=== PATIENT | female | born 2000 | race Caucasian/White ===

== ENCOUNTER 2023-07-09 15:04 | Emergency (ER) | payer OTHER ==
[~2023-07-09] VITALS: Ht 167.6 cm; Wt 76.2 kg
[2023-07-09 15:25] VITALS: BP_SYST 134; PULSE 97; RESP 17; TEMP 97.6
[2023-07-09] MEDS ORDERED: NACL 0.9% 1,000 ML IV ONE (15:30)
[2023-07-09 16:54] LABS: BASOPHILS % (AUTO) 0.5 % (0.0-2.0); EOSINOPHILS % (AUTO) 0.4 % (0.0-4.0); HEMOGLOBIN 13.9 g/dL (12.0-16.0); LYMPHOCYTES # (AUTO) 1.1 K/uL (1.0-5.5); LYMPHOCYTES % (AUTO) 15.2 % (20.5-51.5); MEAN CORPUSCULAR HEMOGLOBIN 30 pg (27-31); MEAN CORPUSCULAR HGB CONC 34 % (32-36); MEAN CORPUSCULAR VOLUME 89 fL (79.0-98.0); MONOCYTES # (AUTO) 0.5 K/uL (0.0-1.0); MONOCYTES % (AUTO) 6.6 % (1.7-9.3); NEUTROPHILS # (AUTO) 5.4 K/uL (1.8-7.7); NEUTROPHILS % (AUTO) 77.3 % (40.0-70.0); PLATELET COUNT (AUTO) 169 K/uL (130-430); RED BLOOD CELL COUNT(AUTO) 4.62 MIL/uL (4.2-6.2)
[2023-07-09 16:57] LABS: INFLUENZA TYPE A positive (NEGATIVE); INFLUENZA TYPE B NEGATIVE (NEGATIVE)
[2023-07-09 17:09] LABS: CALCIUM 8.1 mg/dL (8.4-11.0); CREATININE 0.74 mg/dL (0.55-1.30); POTASSIUM 3.8 mmol/L (3.5-5.1)
[2023-07-09 17:15] LABS: BILIRUBIN,URINE 1+ (NEGATIVE); BLOOD, URINE TRACE (NEGATIVE); CLARITY/URINE SLIGHTLY CLOUDY (CLEAR); COLOR,URINE YELLOW (YELLOW); GLUCOSE,URINE NEGATIVE (NEGATIVE); KETONES,URINE TRACE (NEGATIVE); LEUKOCYTE ESTERASE ,URINE NEGATIVE (NEGATIVE); PROTEIN URINE TRACE (NEGATIVE)
[2023-07-09] MEDS ORDERED: KETOROLAC TROMETHAMINE 30 MG VIAL IVP ONE (17:15)
[2023-07-09 17:16] LABS: NITRITE, URINE NEGATIVE (NEGATIVE)
[2023-07-09 17:22] LABS: ALBUMIN 3.6 g/dL (3.4-4.8); THYROID STIMULATING HORMONE 0.82 uIu/mL (0.34-4.82); TOTAL BILIRUBIN 1.5 mg/dL (0.0-1.0); TOTAL PROTEIN, SERUM 6.9 g/dL (6.4-8.3)
[2023-07-09] MEDS ORDERED: ACETAMINOPHEN 325 MG TABLET PO ONE (17:45)
[2023-07-09 17:47] LABS: BACTERIA,URINE MODERATE /HPF (None Seen); COARSE GRANULAR CASTS,URINE 0-10 /LPF (None Seen); FINE GRANULAR CASTS,URINE 0-10 /LPF (None Seen); MUCUS,URINE 2+ /LPF (None Seen); RBC,URINE 0-3 /HPF (0-3); WBC,URINE 0-3 /HPF (0-3)
[2023-07-09] MEDS ORDERED: OSEL75CA PO (17:57)
[2023-07-09] MEDS ORDERED: ACET325T PO (17:57)
[2023-07-09 18:12] VITALS: BP_SYST 134; PULSE 97; RESP 17; TEMP 97.6; O2SAT 99
== END 2023-07-09 18:12 | disposition home or self-care (01) ==
LOC: SED 15:04
DX: J10.1 Influenza due to other identified influenza virus with other respiratory manifestations (principal); R53.1 Weakness; R55 Syncope and collapse; R50.9 Fever, unspecified; R11.0 Nausea; M79.10 Myalgia, unspecified site; Z85.43 Personal history of malignant neoplasm of ovary; Z79.899 Other long term (current) drug therapy; Z20.822 Contact with and (suspected) exposure to COVID-19
CPT/HCPCS: 99284; 96360; 87426; 80053; 81000; 82962; 84439; 84443; 85025; 87086; 36415; 93005; 81025; 87804 ×2; J1885; J7030

== ENCOUNTER 2023-11-12 19:55 | Emergency (ER) | payer BC, OTHER ==
[~2023-11-12] VITALS: Ht 167.6 cm; Wt 63.5 kg
[~2023-11-12 19:55] MED LIST: ACET325T PO; OSEL75CA PO
[2023-11-12 20:04] VITALS: BP_SYST 128; PULSE 69; RESP 16; TEMP 97.7; O2SAT 99
[2023-11-12 22:06] LABS: COVID19 ANTIGEN SOFIA FIA NEGATIVE (NEGATIVE)
[2023-11-12 22:27] LABS: INFLUENZA TYPE A Negative (NEGATIVE); INFLUENZA TYPE B NEGATIVE (NEGATIVE)
[2023-11-12] MEDS ORDERED: METH-776 PO (23:44)
[2023-11-12] MEDS ORDERED: AUG875 PO (23:44)
[2023-11-12] MEDS ORDERED: ALBMDI INH (23:44)
[2023-11-12] MEDS ORDERED: predniSONE 20 MG TABLET PO ONE (23:45)
[2023-11-12] MEDS ORDERED: AMOXICILLIN/POTASSIUM CLAV 875 MG TABLET PO ONE (23:45)
[2023-11-13 00:14] VITALS: BP_SYST 116; PULSE 71; RESP 18; TEMP 97.7; O2SAT 99
== END 2023-11-13 00:14 | disposition home or self-care (01) ==
LOC: SED 19:55
DX: J40 Bronchitis, not specified as acute or chronic (principal); R05.9 Cough, unspecified; R09.81 Nasal congestion; R06.02 Shortness of breath; Z79.899 Other long term (current) drug therapy; Z20.822 Contact with and (suspected) exposure to COVID-19
CPT/HCPCS: 99283; 87426; 36415; 87804 ×2; J7512